=== PATIENT | female | born 1940 | race African-American/Black ===

== ENCOUNTER 2016-08-26 15:09 | Emergency (ER) | payer MEDICARE, MEDICAID ==
[~2016-08-26] VITALS: Ht 165.1 cm; Wt 81.8 kg
[~2016-08-26 15:09] MED LIST: ALTACE5 MG OR; ALTACE5 MG PO; AMLODIPINE10 MG OR; AMLODIPINE10 MG PO; BAYER LOW81 MG PO; CIPROFLOXACN250 MG PO; COLACE100 MG PO; CRESTOR10 MG PO; FUROSEMIDE40 MG PO; GLUCOVANCE5 MG/500 M OR; GLYB/METFO5 MG/500 M OR; GLYB/METFO5 MG/500 M PO; GLYBURIDE5 MG PO; KLOR-CON 1010 ME1 PO; LIPITOR20 MG PO; LOPRESSOR25 MG OR; LORTAB 7.5 OR; LORTAB 7.5 PO; LORTAB 7.57.5 MG PO; LOTRISONE CREAM15 G1 EX; MEDDOSEPAK PO; MELOXICAM15 MG PO; MELOXICAM7.5 MG PO; METAMUCIL28 % PO; METFORMIN1000 MG PO; METFORMIN500 M1 PO; METOPROL TAR50 MG PO; METOPROLOL TART50 MG PO; PEPCID20 MG PO; PRANDIN1 MG PO; PROTONIX40 MG PO; REGLAN10 MG PO; TRIAM/HCTZ1 CAP PO; TRIAMT/HCTZ1 TA1 PO
[2016-08-26] MEDS ORDERED: NAPROSYN500 MG PO (17:59)
[2016-08-26 18:14] VITALS: BP 165/69
== END 2016-08-26 18:26 | disposition home or self-care (01) ==
LOC: ED 15:09
DX: M79.621 Pain in right upper arm (principal); I10 Essential (primary) hypertension; E11.9 Type 2 diabetes mellitus without complications; E78.5 Hyperlipidemia, unspecified; K21.9 Gastro-esophageal reflux disease without esophagitis; N63 Unspecified lump in breast; R94.31 Abnormal electrocardiogram [ECG] [EKG]

== ENCOUNTER 2018-08-04 21:11 | Inpatient (IN) | payer MEDICARE, MEDICAID ==
[~2018-08-04] VITALS: Ht 165.1 cm; Wt 82.0 kg
[~2018-08-04 21:11] MED LIST changes: +NAPROSYN500 MG PO
--- NOTE | 2018-08-04 21:11 | NUR ---
PT TO ROOM 12 BY EMS.
[2018-08-04 22:04] LABS: HEMATOCRIT 35.3 % (37.0-47.0); HEMOGLOBIN 10.5 g/dl (12.0-16.0); IMMATURE GRANULOCYTES 0.5 % (0.0-5.0); MEAN CELL VOLUME 84.9 fL CALC (80.0-100.0); MEAN CORPUSCULAR HGB 25.2 pG CALC (26.0-32.0); MEAN CORPUSCULAR HGB CONC 29.7 g/L CALC (32.0-36.0); NEUT# 5.24 thou/uL (2.00-7.15); RED BLOOD COUNT 4.16 mill/uL (4.20-5.60); RED CELL DISTRI WIDTH 16.4 % (11.5-15.5)
--- NOTE | 2018-08-04 22:05 | NUR ---
PT TO CT.
[2018-08-04 22:14] LABS: ALBUMIN 4.5 g/dL (3.2-5.0); BILIRUBIN, TOTAL 0.6 mg/dL (0.0-1.4); TOTAL PROTEIN 7.9 g/dL (6.3-8.2)
[2018-08-04 22:22] LABS: ACT PARTIAL THROMBO TIME 25.4 SECONDS (20.0-32.5); D-DIMER 2.25 mg/L (0.19-0.60); INTERNATIONAL NORMALIZED RATIO 1.1 RATIO (0.7-1.3); PROTHROMBIN TIME 11.4 SECONDS (9.0-12.5)
--- NOTE | 2018-08-04 22:25 | NUR ---
RETURNED FROM CT.
[2018-08-04 22:28] LABS: CREATININE 8.4 mg/dL (0.5-1.0)
--- NOTE | 2018-08-04 22:30 | NUR ---
PT UNCOOPERATIVE, REFUSING TO STAY IN BED. PT REMOVED MONITORING DEVICES.
[2018-08-04 22:46] LABS: POTASSIUM 6.4 mmol/l (3.5-5.1)
--- NOTE | 2018-08-04 23:00 | NUR ---
PT RETURNED TO CT.
--- NOTE | 2018-08-04 23:01 | NUR ---
PT RETURNED FROM CT.
--- NOTE | 2018-08-04 23:20 | NUR ---
HR 130 AFIB, CARDIZEM RATE INCREASED TO 15MG/HR
--- NOTE | 2018-08-04 23:30 | NUR ---
PT'S SON AT BEDSIDE, PT CALM.
[2018-08-05] VITALS (37 sets, daily range): BP systolic 64–139; BP diastolic 37–94
--- NOTE | 2018-08-05 00:44 | NUR ---
PT TO CT.
--- NOTE | 2018-08-05 01:05 | NUR ---
RETURNED FROM CT.
--- NOTE | 2018-08-05 01:10 | NUR ---
CARDIAZEM GTT AT 10MG/HR RATE 103 B/P 106/56
--- NOTE | 2018-08-05 01:27 | NUR ---
PT TOOK 1 SIP, AND REFUSED ANY ADDITIONAL SODIUM POLYSTYRENE.
--- NOTE | 2018-08-05 01:43 | NUR ---
REPORT TO KARY EL
--- NOTE | 2018-08-05 01:45 | NUR ---
DR SAVAGE INFORMED PT REFUSED SODIUM POLYSTYRENE.
--- NOTE | 2018-08-05 03:05 | NUR ---
PT TO ICU 3 WITH RN ON MONITOR. PT COND STABLE.
--- NOTE | 2018-08-05 03:05 | NUR ---
ARRIVES VIA STRETCHER FROM ER AT THIS TIME. AMBULATORY WITH SLOW STEADY GAIT WITH CANE FROM ER STRETCHER TO ICU BED. REQUESTING BATH ON ARRIVAL TO THE ROOM. PT. SEEMS SOMEWHAT CONFUSED. WHEN ASKED IF SHE KNOWS WHY SHE IS HERE, SHE STARTS IN ON A LONG RAMBLING STORY ABOUT HOW HER TELEVISION AT HOME IS NOT WORKING. APPEARS IN NO DISTRESS. RESPS EVEN AND UNLABORED. ORIENTED TO SITUATION. APPRISED OF CURRENT LABS AND SEVERITY OF HER MEDICAL CONDITION AT PRESENT. VERBALIZED UNDERSTANDING. CARDIZEM DRIP RESTARTED AT 10 MG/HR AT THIS TIME. NS AT KVO. PROVIDED WITH WATER AND PLACED ON MONITOR. FOUND IN A-FIB WITH RATE IN THE 100-120'S. SPO2 WILL NOT READ PT. FINGERS COLD AND CYANOTIC. APPEARS IN NO RESP DISTRESS. INTRODUCED TO SELF, ROOM AND CALL LIGHT/TELEVISION SYSTEM. UPDATED ON AM PLAN OF CARE. WILL CONTINUE TO MONITOR.
--- NOTE | 2018-08-05 03:40 | NUR ---
PT. ASKING ABOUT HER SON-IN-LAW, SHE THEN STATES HE WENT HOME EARLIER. REAPPRISED OF SITUATION. BP/HR REMAINS STABLE. REMAINS A-FIB ON THE MONITOR.
--- NOTE | 2018-08-05 04:35 | NUR ---
PT. REMAINS ON CARDIZEM DRIP AT 10 MG/HR. SKIN REMAINS COLD AND FINGERS CYANOTIC. RESPS REMAIN EVEN AND UNLABORED. REMAINS ON 2L NC.
[2018-08-05 04:58] LABS: URINE BILIRUBIN - DIPSTICK NEGATIVE (NEGATIVE); URINE BLOOD DIPSTICK TRACE-INTACT (NEGATIVE); URINE COLOR YELLOW; URINE GLUCOSE - DIPSTICK NEGATIVE (NEGATIVE); URINE KETONE TRACE mg/dL (NEGATIVE); URINE LEUK ESTERASE NEGATIVE (NEGATIVE); URINE NITRITE - DIPSTICK NEGATIVE (Negative); URINE PROTEIN - DIPSTICK 30 mg/dL (NEG-TRACE); URINE SPECIFIC GRAVITY 1.025; URINE UROBILINOGEN - DIPSTICK 0.2 E.U./dL (0.2)
[2018-08-05 05:05] LABS: URINE BACTERIA FEW hpf; URINE HYALINE CAST FEW lpf (NONE-RARE); URINE MUCUS FEW hpf (NONE-FEW); URINE SQUAMOUS EPITHELIAL CELL MODERATE EPI/hpf (0-FEW)
--- NOTE | 2018-08-05 05:20 | NUR ---
LAB CALLED WITH ACCUCHECK OF 34. ORDER PLACED FOR D50 AMP.
[2018-08-05 05:22] LABS: POTASSIUM 5.3 mmol/l (3.5-5.1)
[2018-08-05 05:23] LABS: CREATININE 7.8 mg/dL (0.5-1.0)
[2018-08-05 05:52] LABS: ALBUMIN 3.7 g/dL (3.2-5.0)
[2018-08-05 05:54] LABS: BILIRUBIN, TOTAL 0.4 mg/dL (0.0-1.4); TOTAL PROTEIN 6.4 g/dL (6.3-8.2)
[2018-08-05 05:57] LABS: HEMOGLOBIN 9.3 g/dl (12.0-16.0); IMMATURE GRANULOCYTES 0.5 % (0.0-5.0); MEAN CELL VOLUME 84.7 fL CALC (80.0-100.0); MEAN CORPUSCULAR HGB 25.4 pG CALC (26.0-32.0); NEUT# 5.27 thou/uL (2.00-7.15); RED BLOOD COUNT 3.66 mill/uL (4.20-5.60); RED CELL DISTRI WIDTH 16.2 % (11.5-15.5)
--- NOTE | 2018-08-05 06:00 | NUR ---
ACCUCHECK CONTINUES TO READ CRITICALLY LOW. NEW ORDER FOR D50 PLACED.
--- NOTE | 2018-08-05 06:25 | NUR ---
AMP OF D50 ADMINISTERED AT THIS TIME. PT. REMAINS PLEASANTLY CONFUSED. PROVIDED WITH ORANGE JUICE. WILL CONTINUE TO MONITOR.
--- NOTE | 2018-08-05 06:43 | NUR ---
ACCUCHECK NOW 127. PT. REMAINS SOMEWHAT CONFUSED. DENIES COMPLAINTS OF PAIN OR NEEDS.
--- NOTE | 2018-08-05 07:40 | NUR ---
ACCUCHECK 155
--- NOTE | 2018-08-05 07:45 | NUR ---
DR THOMPSON @BEDSIDE. PER PCP, PT MORE CONFUSED THAN NORMAL. PT SITTING UP IN BED, EATING BREAKFAST. PT YELLING FOR "NURSE". UPON ENTERING ROOM, PT INFORMED STAFF SHE DIDNT WANT PARTS OF HER TRAY.
--- NOTE | 2018-08-05 08:05 | NUR ---
SPOKE TO DR. THOMPSON WHO CALLED AND STATED THE PATIENT HAS BEEN ACCEPTED AT [facility] BY DR. GLEZ. WILL TRANSFER WHEN [facility] CALLS WITH ROOM # FOR PATIENT.
--- NOTE | 2018-08-05 08:06 | NUR ---
SPEAKING WITH PT'S SISTER IN LAW JONH [phone]
--- NOTE | 2018-08-05 08:30 | NUR ---
PT FOUND TRYING TO GET OOB, PT CONFUSED TALKING ABOUT HOW SHE HAS BEEN HERE A [facility] AND PAID US FOR A BATH AND NO ONE WILL GIVE HER A BATH, ATTEMPTS TO REORIENT AND REDIRECT MET WITH HOSTILITY, PT REFERS TO STAFF BOSSY AND BEING UP IN HER BUSINESS "WHEN YOU SHOULD BE MINDING YOUR OWN" PT SET AND ASSISTED WITH BATH AT BEDSIDE.
--- NOTE | 2018-08-05 08:35 | NUR ---
PT WASHING SELF. WASHCLOTHE & SHEETS BROWN FROM DIRT. WHEN ASKED WHEN PT LAST HAD A BATH, SHE REPLIED (MULTIPLE TIMES) THAT WE "NEED TO MIND OUR BUSINESS AND STOP WORRYING ABOUT HER". PT REFUSED HELP WHIPPING DOWN BUT MADE MULTIPLE COMMENTS ABOUT US NOT GIVING HER A BATH WHEN SHE KNOWS SHE ALREADY PAID FOR IT. PT ALSO MAKING COMMENTS ABOUT US NOT EVEN GIVING HER WATER ALTHOUGH PITCHER & GLASS OF WATER SITTING ON BEDSIDE TABLE. PT USING HOSTILE WORDS TOWARD STAFF.
--- NOTE | 2018-08-05 08:50 | NUR ---
PT ASSISTED TO SIDE OF BED FOR SELF BATH. PT UPSET BC SHES "BEEN HERE FOR A WEEK" AND SHES "ALREADY PAID US [employer] TO WASH HER" BUT WE "DONE TOOK HER MONEY AND ARENT TAKING CARE OF HER. PT VERY CONFUSED, STATING IT IS 2018 IN [place]. PT ARGUMENTATIVE WITH STAFF WHEN TRYING TO REORIENT. PT MAKING MULTIPLE ATTEMPTS TO GET OUT OF BED BUT GAIT IS UNSTEADY. PT MAKING MULTIPLE COMMENTS ABOUT "US [employer]". PT MOVED TO ICU 4 FOR BETTER OBSERVATION. PT PREFERS SITTING IN CHAIR.
--- NOTE | 2018-08-05 08:55 | NUR ---
LAB @BEDSIDE FOR DRAW.
--- NOTE | 2018-08-05 09:06 | NUR ---
STEP SON @BEDSIDE. PT WITNESSED GIVING HIM ZAPATA. FEMALE CALLER TRANSFERED TO PORTABLE PHONE AND TAKEN TO PT. STEP SON ALSO GOING THROUGH PTS BELONGINGS IN BAG.
--- NOTE | 2018-08-05 09:15 | NUR ---
CALLED DR THOMPSON FOR MEDICATION TO HELP FOR MRI.
--- NOTE | 2018-08-05 09:47 | NUR ---
UNABLE TO BRING PT DOWN TO MRI @THIS TIME [facility]. WILL TRY TO WEAN PT OFF FOR MRI LATER TODAY.
--- NOTE | 2018-08-05 10:15 | NUR ---
ASKED PT IF SHE WANTED TO GET BACK IN BED. PT RESPONDED FOR ME TO MIND MY OWN BUSINESS, SHE "WILL TELL ME WHEN SHE WANTS TO GET BACK IN BED"
--- NOTE | 2018-08-05 10:22 | NUR ---
PT SEEN WITH HEAD SLUMPED DOWN. PT UNRESPONSIVE TO VERBAL STIMULI. CALLED FOR ASSISTANCE TO MOVE PT BACK TO BED. ACCUCHECK 114
--- NOTE | 2018-08-05 10:25 | NUR ---
[facility] STOPPED/DC. CM RUNNING AT 100ML/HR.
--- NOTE | 2018-08-05 10:51 | NUR ---
PT REMAINS SLEEPING WITH OCCASIONAL SNORING. 2 VISITORS @BEDSIDE. MANUAL BP 70/40. HR IN 30'S. CALLED DR THOMPSON TO INFORM OF PTS STATUS. VERBAL ORDER FOR REPEAT EKG.
--- NOTE | 2018-08-05 11:06 | NUR ---
EKG COMPLETED. SCANNED IN TO SYSTEM FOR DR THOMPSON TO SEE.
--- NOTE | 2018-08-05 11:30 | NUR ---
DR THOMPSON WCB IN A FEW MINS AFTER HE REVIEWS THE SCANNED EKG.
--- NOTE | 2018-08-05 11:34 | NUR ---
PER DR THOMPSON, NO NEW ORDERS AT THIS TIME. CONTINUE TO MONITOR. PTS HR 46 AFIB, O2 100% ON 2L NC, RR 28. PTS HEAD LOWERED TO 20%, FEET ELEVATED. 1 VISITOR STILL @BEDSIDE.
--- NOTE | 2018-08-05 11:58 | NUR ---
LAB @BEDSIDE FOR DRAW.
--- NOTE | 2018-08-05 12:29 | NUR ---
PT SLEEPING IN BED. 1 VISITOR AT BEDSIDE. NOT RESPONSIVE TO VERBAL STIMULI. SKIN COOL/CLAMMY. HR 50s-70s, AFIB. BREATHING EVEN/UNLABORED. FEET ELEVATED.
[2018-08-05 12:36] LABS: ALBUMIN 3.2 g/dL (3.2-5.0); BILIRUBIN, TOTAL 0.4 mg/dL (0.0-1.4); TOTAL PROTEIN 5.8 g/dL (6.3-8.2)
--- NOTE | 2018-08-05 13:00 | NUR ---
OXY MASK PLACED ON PT. PT STARTING TO WAKE UP, BREATHING OUT MOUTH. BREATHING IS EVEN/UNLABORED.
[2018-08-05 13:03] LABS: CREATININE 7.2 mg/dL (0.5-1.0); POTASSIUM 6.1 mmol/l (3.5-5.1)
--- NOTE | 2018-08-05 13:08 | NUR ---
DR THOMPSON CALLED TO INFORM OF CRITICAL LAB RESULTS.
--- NOTE | 2018-08-05 13:16 | NUR ---
COUSIN @BEDSIDE ASKED ABOUT PTS PURSE. COUSIN GIVEN PTS PURSE & MEDICATIONS & CLOTHES TO TAKE HOME. COUSIN CONCERNED ABOUT FAMILY TAKING ADVANTAGE OF PT. ANOTHER WARM BLANKET PLACED ON PT/HANDS.
--- NOTE | 2018-08-05 13:44 | NUR ---
DR THOMPSON UPDATED ON PTS VS. WILL CONTINUE TO MONITOR.
--- NOTE | 2018-08-05 13:58 | NUR ---
CM ASKED TO CALL DR THOMPSON AT HIS OFFICE TO HELP ARRANGE A TRANSFER FOR NEPHROLOGY.
--- NOTE | 2018-08-05 16:08 | NUR ---
STEP DAUGHTER CALLED FROM [place], CALL PASSED ON TO MRS MOELLER (COUSIN) @BEDSIDE. SUNNI UPDATED ON TEST/PROCEDURE RESULTS AND POC.
--- NOTE | 2018-08-05 17:29 | NUR ---
PT RESTING IN BED. DINNER TRAY GIVEN TO 2 FAMILY MEMBERS @BEDSIDE. SKIN COOL/DRY. BREATHING EVEN/UNLABORED. OXYMASK ON 6L NC. PT REACTS NEGATIVELY TO BP CUFF. SODIUM BICARB RUNNING INTO #20 LAC. EYES PERRLA. PT MOVING ALL EXTREMETIES. TRANSFER PENDING BED ASSIGNMENT WITH [facility].
--- NOTE | 2018-08-05 18:17 | NUR ---
JA LEAVING FOR THE NIGHT BUT WOULD LIKE TO BE CONTACTED RE: TRANSFER OF PT SO SHE KNOWS WHERE & WHEN PT IS GOING.
--- NOTE | 2018-08-05 18:45 | NUR ---
REPORT FROM Marilyn DE PAZ RN. ASSUMED PT. CARE.
--- NOTE | 2018-08-05 19:05 | NUR ---
PT. FOUND RESTING IN BED WITH EYES CLOSED. O2 BEING DELIVERED VIA MASK. PT. DROWSY, DIFFICULTY TO AROUSE. AWAKENS TO MODERATE TACTILE STIMULI, BUT CLOSES HER EYES AGAIN. BP HYPOTENSIVE IN THE 70'S AT THIS TIME. REPEAT BP IS NOW 66/40. MD MADE AWARE AND NEW ORDERS RECEIVED.
--- NOTE | 2018-08-05 19:10 | NUR ---
BICARB DRIP STOPPED AT THIS TIME, LINE FLUSHED AND LEVOPHED INITIATED AT 8 MCG/MIN. THE TWO ARE NOT COMPATIBLE, WILL START ANOTHER LINE AT THIS TIME. PT. ORIENTED TO PERSON AND PLACE AT THIS TIME. STATES IT IS JULY, BUT WILL NOT TELL ME THE YEAR. RESPS EVEN AND UNLABORED. BOWEL SOUNDS ACTIVE, NO EDEMA NOTED. LUNGS DIMINISHED TO BASES WHICH MAY BE A RESULT OF BODY HABITUS OR FAILURE TO TAKE DEEP BREATH UPON REQUEST. PT. REMAINSIN A-FIB IN THE 60-80 RANGE. CALL LIGHT REMAINS WITHIN REACH. WILL CONTINUE TO ASSESS.
--- NOTE | 2018-08-05 19:45 | NUR ---
SECOND IV LINE ESTABLISHED WITH 18 GAUGE TO LT. EJ. PT. SKIN VERY TOUGH 3 UNSUCCESSFUL ATTEMPTS PRIOR TO INSERTION OF EJ. FLUSHES WELL WITH SATISFACTORY BLOOD RETURN. BICARB DRIP RESTARTED AT THIS TIME.
--- NOTE | 2018-08-05 20:28 | NUR ---
PT. CALLING OUT AT THIS TIME. MUCH MORE AWAKE, AND ALERT. UPDATED ON PLAN OF CARE AND TRANSFER TO [facility]. INTERMITTENT COUGH NOTED. LEVOPHED DRIP INFUSING AT 8 MCG/MIN AT THIS TIME. WILL CONTINUE TO MONITOR. BP IS STABLE IN THE 120'S SYSTOLIC. CALL LIGHT REMAINS WITHIN REACH. PLACED BACK ON NASAL CANNULA FROM O2 MASK.
--- NOTE | 2018-08-05 21:13 | NUR ---
PT. SPEAKING TO HER SISTER ON THE PHONE AT THIS TIME. SISTER UPDATED OF PLAN OF CARE AFTER PROVIDING PATIENT PRIVACY PASS CODE. WILL CONTINUE TO MONITOR.
--- NOTE | 2018-08-05 21:52 | NUR ---
RECEIVED CALL FROM ANGELA AT [facility]. PT. IS ACCEPTED TO ICU [id number] BY DR. GLEZ.
--- NOTE | 2018-08-05 22:08 | NUR ---
PT. RESTING WITH EYES CLOSED IN NO DISTRESS AT THIS TIME. BICARB DRIP AND LEVOPHED DRIP INFUSING AT 8 MCG/MIN AT THIS TIME. BP STABLE IN THE 110'S SYSTOLIC. WILL TRANSFER AT THIS TIME.
--- NOTE | 2018-08-05 22:15 | NUR ---
CALLED AND SPOKE TO MAXIMO AT [facility]. STATES TRANSPORT WILL BE HERE IN 30 MINUTES
--- NOTE | 2018-08-05 22:40 | NUR ---
[facility] AT BEDSIDE AT THIS TIME.
--- NOTE | 2018-08-05 23:00 | NUR ---
PT. LEAVES VIA [place] ON BICARB DRIP AT 75 CC/HR AND LEVOPHED DRIP AT 8 MCG/MIN.
--- NOTE | 2018-08-05 23:21 | NUR ---
REPORT CALLED TO SILVANA AT [facility].
== END 2018-08-05 23:00 | disposition short-term general hospital (02) | DRG 684 ==
LOC: ED 21:11 → ED-I 22:24 → ED 22:38 → ICU 22:39
PROVIDERS: Family Medicine; ADMIT Internal Medicine Geriatric Medicine; ATTEND Internal Medicine Geriatric Medicine
PROC: 0T9B70Z Drainage of Bladder with Drainage Device, Via Natural or Artificial Opening (ICD-10-PCS; principal; 2018-08-05)
DX: N17.9 Acute kidney failure, unspecified (principal); E11.22 Type 2 diabetes mellitus with diabetic chronic kidney disease; I12.9 Hypertensive chronic kidney disease with stage 1 through stage 4 chronic kidney disease, or unspecified chronic kidney disease; N18.9 Chronic kidney disease, unspecified; E11.649 Type 2 diabetes mellitus with hypoglycemia without coma; E86.0 Dehydration; I48.2 Chronic atrial fibrillation; E78.5 Hyperlipidemia, unspecified; M19.90 Unspecified osteoarthritis, unspecified site; I25.10 Atherosclerotic heart disease of native coronary artery without angina pectoris; R41.82 Altered mental status, unspecified; I95.9 Hypotension, unspecified
CPT/HCPCS: J1650; J2060